=== PATIENT | female | born 1945 | race African-American/Black ===

== ENCOUNTER 2020-05-12 10:33 | Inpatient (IN) | payer MEDICARE, OTHER ==
[~2020-05-12] VITALS: Ht 162.6 cm; Wt 51.8 kg
[2020-05-12 11:44] LABS: BASOPHIL 0.3 % (0-2); EOSINOPHIL 0.3 % (0-7); HCT 43.2 % (37.0-47.0); HGB 12.2 g/dl (12.5-16.0); LYMPHOCYTE 10.6 % (15-48); MCH 31.3 pg (25.0-31.0); MCHC 28.2 g/dL (32.0-36.0); MCV 110.8 fL (78.0-100.0); MONOCYTE 4.7 % (0-12); MPV 11.6 fL (6.0-9.5); NEUTROPHIL 83.9 % (41-80); NRBC 0; PLT 225 K/uL (150-400); RDW 12.7 % (11.5-14.0); WBC 5.8 K/uL (4.0-10.5)
[2020-05-12 11:51] LABS: ALBUMIN 2.6 g/dL (3.4-5.0); ALKALINE PHOSHATASE 98 U/L (46-116); ALT 17 U/L (14-59); AST 23 U/L (15-37); BILIRUBIN - TOTAL 0.3 mg/dL (0.2-1.0); BUN 17 mg/dL (7-18); BUN/CREAT RATIO (CALC) 51.5 RATIO; CHLORIDE 100 mmol/L (98-107); CREATININE 0.33 mg/dL (0.51-0.95); GLOBULIN (CALCULATION) 4.1 g/dL; GLUCOSE 217 mg/dL (74-106); POTASSIUM 4.1 mmol/L (3.5-5.1); TOTAL PROTEIN 6.7 g/dL (6.4-8.2)
[2020-05-12 11:53] LABS: PRO-BNP 504 pg/mL (<450)
[2020-05-12 11:57] LABS: CO2 (BICARBONATE) > 45 mmol/L (21-32)
[2020-05-12 12:16] LABS: CORONAVIRUS 2019 SARS-COV-2 NEGATIVE (NEGATIVE); INFLUENZA A NAA NEGATIVE (NEGATIVE)
[2020-05-12] MEDS ORDERED: HYDRALAZINE25 MG PO (22:06)
[2020-05-12] MEDS ORDERED: ADALAT CC60 MG PO (22:07)
[2020-05-12] MEDS ORDERED: CHOLESTYRAMINE378 GM PO (22:08)
[2020-05-12] MEDS ORDERED: FLOVENT DISKU100 MCG PO (22:08)
[2020-05-12] MEDS ORDERED: SPIRIVA RESPIMAT4 G1 INH (22:10)
[2020-05-12] MEDS ORDERED: PROAIR DIGIHAL90 MCG INH (22:11)
[2020-05-12] MEDS ORDERED: ASPIRIN EC81 M1 PO (22:12)
[2020-05-12] MEDS ORDERED: LUMIGAN5 ML EYEBOTH (22:14)
--- NOTE | 2020-05-13 02:03 | NUR ---
RT TRIED TO PLACE BIPAP ON PT, PT BECAME ADGITATED AND COMBATIVE, TRYING TO CLIMB OUT OF BED AND WOULD NOT PUT BIPAP ON, DAUGHTER AT BEDSIDE, HOOP MAKER HELPER MACHINE NOTIFIED, PT AGREED TO FINALLY WEAR NASAL CANNULA, WILL CONTINUE TO MONITOR
[2020-05-13 05:33] LABS: HCT 40.3 % (37.0-47.0); HGB 11.4 g/dl (12.5-16.0); MCH 30.7 pg (25.0-31.0); MCHC 28.3 g/dL (32.0-36.0); MCV 108.6 fL (78.0-100.0); MPV 10.4 fL (6.0-9.5); RBC 3.71 M/uL (4.20-5.40); RDW 12.5 % (11.5-14.0)
[2020-05-13 05:55] LABS: BUN 16 mg/dL (7-18); BUN/CREAT RATIO (CALC) 37.2 RATIO; CHLORIDE 102 mmol/L (98-107); CO2 (BICARBONATE) >45 mmol/L (21-32); CREATININE 0.43 mg/dL (0.51-0.95); GLUCOSE 108 mg/dL (74-106); POTASSIUM 4.5 mmol/L (3.5-5.1)
--- NOTE | 2020-05-13 11:19 | NUR ---
PT REPORTS SHE LIVES WITH HER DTR BRIAN WHO HELPS WITH HER ADL'S . HANK IS ALSO A DTR AND WILL COME PICK HER UP AT TIME OF DISCHARGE. PT REPORTS SHE HAS HOME O2, WALKER AND CANE SHE WOULD LIKE TO HAVE HOME HEALTH AT DISCHARGE FOR NURSING PT/OT. I DID EXPAIN CHOICE LETTER AFFILIATIONS EXPLAINED AND WAS SIGN PER PT REQUEST BY DTR FLORESITA. DR ABRAHAM NOTIFIED OF PT CHOICE AND FELT THIS WOULD BENIFIT HER WELL.
--- NOTE | 2020-05-13 11:22 | NUR ---
[facility] NOTIFIED ON [facility] PLEASE CALL [phone] AT DISCHARGE TO NOTIFY [facility].
--- NOTE | 2020-05-13 14:10 | NUR ---
REFERRAL FOR [facility] FOR NURSING ASSESSMENT AND PT/OT. PT. TO D/C HOME ON 05/14/20.
[2020-05-14 03:49] LABS: HCT 39.3 % (37.0-47.0); HGB 11.5 g/dl (12.5-16.0); MCH 30.7 pg (25.0-31.0); MCHC 29.3 g/dL (32.0-36.0); MCV 105.1 fL (78.0-100.0); MPV 10.8 fL (6.0-9.5); RBC 3.74 M/uL (4.20-5.40); RDW 12.7 % (11.5-14.0); WBC 5.8 K/uL (4.0-10.5)
[2020-05-14 04:08] LABS: BUN/CREAT RATIO (CALC) 46.7 RATIO; CREATININE 0.3 mg/dL (0.51-0.95); POTASSIUM 4.6 mmol/L (3.5-5.1)
[2020-05-14] MEDS ORDERED: ZPAK PO (08:03)
[2020-05-14] MEDS ORDERED: MEDROL 4MG DOSEP4 MG PO (08:03)
--- NOTE | 2020-05-14 12:09 | NUR ---
PT DISCHARGED AT 1114 VIA WHEELCHAIR TO ER DOOR WHERE OTHER FAMILY MEMBER WAS WAITING. FAMILY MEMBER AT BEDSIDE ASSISTED PT WITH DRESSING. HOME OXYGEN BROUGHT INTO PT TO LEAVE WITH. FAMILY MEMBER STATED PT WAS AT HER BASLINE. PT ON 2L O2 NC WHEN LEAVING. PT TELE REMOVED, IV DC'D AND PULSE OX REMOVED. PT DISCHARGE INSTRUCTIONS GIVEN TO PT AND FAMILY MEMBER. BOTH EDUCATED ON NEW MEDICATIONS PRESCRIBED AND PAPER SCRIPTS GIVEN TO FAMILY MEMBER. FAMILY MEMBER STATED THAT THE PHARMACY THEY USE IS CLOSED AND WOULD NOT BE OPEN UNTIL TOMORROW. RN SUGGESTED TO START MEDICATION LOR. PT ALSO GIVEN EDUCATION ON SIDE EFFECTS, AND HOW TO USE NEW MEDS. RN EDUCATED PT ON SIGNS AND SYMPTOMS TO REPORT TO PCP OR COME TO THE ER WITH SOA, CHEST PAIN, DIZZINESS SYNCOPE, INCREASED CONFUSION. PT AND FAMILY STATED THEY UNDERSTOOD. PACKETS GIVEN ON HOW TO MANAGE RESP DISTRESS AND PNUEMONIA. TAKE MEDICATION DIRECTED. PT SEEMS TO BE IN NO PAIN OR DISTRESS AT THIS TIME. ASSISTED PT INTO BACK OF VAN AND BUCKLED SEAT BELT.
== END 2020-05-14 11:15 | disposition home health service (06) | DRG 193 ==
LOC: FER 10:33 → FTCU 12:06
PROVIDERS: Emergency Medicine; ADMIT Hospitalist
PROC: 5A09457 Assistance with Respiratory Ventilation, 24-96 Consecutive Hours, Continuous Positive Airway Pressure (ICD-10-PCS; principal; 2020-05-12)
DX: J18.9 Pneumonia, unspecified organism (principal); J96.21 Acute and chronic respiratory failure with hypoxia; J96.22 Acute and chronic respiratory failure with hypercapnia; J44.1 Chronic obstructive pulmonary disease with (acute) exacerbation; J44.0 Chronic obstructive pulmonary disease with (acute) lower respiratory infection; E87.2 Acidosis; Z20.822 Contact with and (suspected) exposure to COVID-19; I10 Essential (primary) hypertension; Z99.81 Dependence on supplemental oxygen; Z87.891 Personal history of nicotine dependence
CPT/HCPCS: 36415; 36600; 71045; 80048; 80053; 82803; 82962; 83605; 83880; 84145; 84484; 85025; 87040; 93005; 94010; 94640; 97116; 97162; 97166; 97530-GP; 97535; J0456; J0696; J1650; J2930; J7030; J7050; U0002

== ENCOUNTER 2020-10-12 17:04 | Day surgery (SDCO) | payer MEDICARE, OTHER ==
[~2020-10-12] VITALS: Ht 162.6 cm; Wt 50.9 kg
[~2020-10-12 17:04] MED LIST: ADALAT CC60 MG PO; ASPIRIN EC81 M1 PO; CHOLESTYRAMINE378 GM PO; FLOVENT DISKU100 MCG PO; HYDRALAZINE25 MG PO; LUMIGAN5 ML EYEBOTH; MEDROL 4MG DOSEP4 MG PO; PROAIR DIGIHAL90 MCG INH; SPIRIVA RESPIMAT4 G1 INH; ZPAK PO
[2020-10-12 19:21] LABS: BASOPHIL 0.3 % (0-2); EOSINOPHIL 0.8 % (0-7); HCT 37.3 % (37.0-47.0); HGB 10.8 g/dl (12.5-16.0); LYMPHOCYTE 17.2 % (15-48); MCH 32.1 pg (25.0-31.0); MONOCYTE 7.5 % (0-12); MPV 10.5 fL (6.0-9.5); NRBC 0; PLT 238 K/uL (150-400); RBC 3.36 M/uL (4.20-5.40); RDW 14.1 % (11.5-14.0); WBC 6.4 K/uL (4.0-10.5)
[2020-10-12 19:39] LABS: ALKALINE PHOSHATASE 89 U/L (46-116); ALT 15 U/L (14-59); AMYLASE 77 U/L (25-115); AST 20 U/L (15-37); BILIRUBIN - TOTAL 0.3 mg/dL (0.2-1.0); BUN 19 mg/dL (7-18); CHLORIDE 99 mmol/L (98-107); CO2 (BICARBONATE) >45 mmol/L (21-32); GLOBULIN (CALCULATION) 3.6 g/dL; GLUCOSE 100 mg/dL (74-106); LIPASE 106 U/L (73-393); POTASSIUM 4.2 mmol/L (3.5-5.1); TOTAL PROTEIN 6.6 g/dL (6.4-8.2)
[2020-10-12 21:59] LABS: BILIRUBIN NEGATIVE (NEGATIVE); BLOOD 3+ Ery/uL (NEGATIVE); CLARITY CLEAR (CLEAR); COLOR YELLOW (YELLOW); GLUCOSE (U) NORMAL (NORMAL); LEUKOCYTES NEGATIVE Leu/uL (NEGATIVE); NITRITE NEGATIVE (NEGATIVE); PROTEIN NEGATIVE (NEGATIVE); UROBILINOGEN 0.2 mg/dL (0.2-1.0); pH 7.5 (5.0-9.0)
[2020-10-12 22:09] LABS: URINARY RBC RARE; URINARY WBC RARE
[2020-10-13 05:42] LABS: BASOPHIL 0.3 % (0-2); EOSINOPHIL 1.6 % (0-7); HCT 34.1 % (37.0-47.0); HGB 9.8 g/dl (12.5-16.0); LYMPHOCYTE 18.4 % (15-48); MCH 31.6 pg (25.0-31.0); MCHC 28.7 g/dL (32.0-36.0); MONOCYTE 8.5 % (0-12); MPV 10.1 fL (6.0-9.5); NRBC 0; PLT 199 K/uL (150-400); RDW 14.2 % (11.5-14.0); WBC 6.4 K/uL (4.0-10.5)
[2020-10-13 06:08] LABS: ALBUMIN 2.5 g/dL (3.4-5.0); BILIRUBIN - TOTAL 0.3 mg/dL (0.2-1.0); BUN/CREAT RATIO (CALC) 37.2 RATIO; CREATININE 0.43 mg/dL (0.51-0.95); GLOBULIN (CALCULATION) 3.2 g/dL; POTASSIUM 4.1 mmol/L (3.5-5.1); TOTAL PROTEIN 5.7 g/dL (6.4-8.2)
--- NOTE | 2020-10-13 22:55 | NUR ---
PT TRANSFERRED FROM TCU TO MED SURG UNIT VIA BED TRANSFER , STABLE UPON ARRIVAL. PT ALERT AND ORIENTED NO S/S OR C/O PAIN NOTED PT INSTRUCTED ON USE OF CALL LIGHT AND WITHIN REACH. DAUGHTER AT BEDSIDE.
[2020-10-14] MEDS ORDERED: PROTONIX 40MG T40 MG PO (09:16)
--- NOTE | 2020-10-14 12:03 | NUR ---
DISCUSSED DISCHARGE INSTRUCTIONS WITH PATIENT AND DAUGHTERS. INFORMED OF FOLLOW UP APPOINTMENTS AND SCRIPTS. D/C HOME IN STABLE CONDITION. IV REMOVED, PRESSURE APPLIED TO AREA. SWITCHED TO HOME O2 TANK.
== END 2020-10-14 12:15 | disposition home or self-care (01) ==
LOC: FER 17:04 → FTCU 21:38 → FMS 10-13 22:20
PROVIDERS: Emergency Medicine; Nurse Practitioner; ADMIT Internal Medicine
DX: K29.51 Unspecified chronic gastritis with bleeding (principal); K25.4 Chronic or unspecified gastric ulcer with hemorrhage; K44.9 Diaphragmatic hernia without obstruction or gangrene; K57.31 Diverticulosis of large intestine without perforation or abscess with bleeding; I10 Essential (primary) hypertension; K42.9 Umbilical hernia without obstruction or gangrene; K40.20 Bilateral inguinal hernia, without obstruction or gangrene, not specified as recurrent; D25.9 Leiomyoma of uterus, unspecified; N28.1 Cyst of kidney, acquired; N20.0 Calculus of kidney; J44.9 Chronic obstructive pulmonary disease, unspecified; E78.00 Pure hypercholesterolemia, unspecified; J96.11 Chronic respiratory failure with hypoxia; J96.12 Chronic respiratory failure with hypercapnia; Z87.891 Personal history of nicotine dependence; Z79.82 Long term (current) use of aspirin; Z79.899 Other long term (current) drug therapy; Z99.81 Dependence on supplemental oxygen; Z20.822 Contact with and (suspected) exposure to COVID-19
CPT/HCPCS: 36415; 80053; 81001; 82150; 83690; 85025; 88305; 88342; 94640; 94760; C9113; G0378; J7030; J7120; Q9967; U0002

== ENCOUNTER 2021-01-29 12:48 | Emergency (ER) | payer MEDICARE, OTHER ==
[~2021-01-29 12:48] MED LIST changes: +PROTONIX 40MG T40 MG PO
[2021-01-29 14:34] LABS: BASOPHIL 0.7 % (0-2); EOSINOPHIL 1.2 % (0-7); HCT 39.2 % (37.0-47.0); HGB 11.2 g/dl (12.5-16.0); LYMPHOCYTE 14.3 % (15-48); MCHC 28.6 g/dL (32.0-36.0); MPV 10.7 fL (6.0-9.5); NEUTROPHIL 76.6 % (41-80); NRBC 0; PLT 209 K/uL (150-400); RDW 13.7 % (11.5-14.0); WBC 4.3 K/uL (4.0-10.5)
[2021-01-29 14:48] LABS: INR 1.01 (0.9-1.2); PROTHROMBIN TIME 12.7 SECONDS (11.8-13.4)
[2021-01-29 14:57] LABS: ALBUMIN 2.8 g/dL (3.4-5.0); BILIRUBIN - TOTAL 0.2 mg/dL (0.2-1.0); BUN/CREAT RATIO (CALC) 31.4 RATIO; CREATININE 0.35 mg/dL (0.51-0.95); GLOBULIN (CALCULATION) 3.6 g/dL; POTASSIUM 4.3 mmol/L (3.5-5.1); TOTAL PROTEIN 6.4 g/dL (6.4-8.2)
[2021-01-29] MEDS ORDERED: BACTRIM DS TAB1 EACH PO (15:19)
== END 2021-01-29 15:46 | disposition home or self-care (01) ==
LOC: FER 12:48
PROVIDERS: Internal Medicine
DX: S01.112A Laceration without foreign body of left eyelid and periocular area, initial encounter (principal); I10 Essential (primary) hypertension; Z23 Encounter for immunization; W01.0XXA Fall on same level from slipping, tripping and stumbling without subsequent striking against object, initial encounter; Y92.009 Unspecified place in unspecified non-institutional (private) residence as the place of occurrence of the external cause
CPT/HCPCS: 36415; 70450; 70486; 80053; 85025; 85610; 85730; 90471; 90715

== ENCOUNTER 2021-11-03 08:55 | Emergency (ER) | payer MEDICARE, OTHER ==
[~2021-11-03 08:55] MED LIST changes: +BACTRIM DS TAB1 EACH PO
[2021-11-03 10:09] LABS: BASOPHIL 0.7 % (0-2); EOSINOPHIL 0.4 % (0-7); HCT 35.8 % (37.0-47.0); HGB 10.5 g/dl (12.5-16.0); LYMPHOCYTE 18.3 % (15-48); MCH 31.1 pg (25.0-31.0); MCHC 29.3 g/dL (32.0-36.0); MCV 105.9 fL (78.0-100.0); MONOCYTE 7.7 % (0-12); MPV 11.6 fL (6.0-9.5); NEUTROPHIL 72.2 % (41-80); NRBC 0; PLT 165 K/uL (150-400); RBC 3.38 M/uL (4.20-5.40); RDW 11.9 % (11.5-14.0); WBC 2.8 K/uL (4.0-10.5)
[2021-11-03 10:19] LABS: INR 0.99 (0.9-1.2); PROTHROMBIN TIME 12.8 SECONDS (11.9-13.9); PTT 28.2 SECONDS (24.9-34.6)
[2021-11-03 10:33] LABS: ALBUMIN 2.8 g/dL (3.4-5.0); ALKALINE PHOSHATASE 76 U/L (46-116); ALT 18 U/L (14-59); AST 22 U/L (15-37); BILIRUBIN - TOTAL 0.3 mg/dL (0.2-1.0); BUN 18 mg/dL (7-18); BUN/CREAT RATIO (CALC) 42.9 RATIO; CHLORIDE 96 mmol/L (98-107); CREATININE 0.42 mg/dL (0.51-0.95); GLOBULIN (CALCULATION) 2.6 g/dL; GLUCOSE 86 mg/dL (74-106); POTASSIUM 3.6 mmol/L (3.5-5.1); TOTAL PROTEIN 5.4 g/dL (6.4-8.2)
[2021-11-03 10:34] LABS: CO2 (BICARBONATE) > 45 mmol/L (21-32)
[2021-11-03 10:44] LABS: CORONAVIRUS 2019 SARS-COV-2 NEGATIVE (NEGATIVE); INFLUENZA A NAA NEGATIVE (NEGATIVE)
[2021-11-03 10:47] LABS: BILIRUBIN NEGATIVE (NEGATIVE); BLOOD NEGATIVE Ery/uL (NEGATIVE); CLARITY CLEAR (CLEAR); COLOR YELLOW (YELLOW); GLUCOSE (U) NORMAL (NORMAL); LEUKOCYTES NEGATIVE Leu/uL (NEGATIVE); NITRITE NEGATIVE (NEGATIVE); PROTEIN TRACE (LOW) mg/dL (NEGATIVE); SPECIFIC GRAVITY 1.025 (1.001-1.030); UROBILINOGEN 0.2 mg/dL (0.2-1.0)
== END 2021-11-03 11:52 | disposition critical access hospital (66) ==
LOC: FER 08:55
PROVIDERS: Emergency Medicine
DX: S06.5X0A Traumatic subdural hemorrhage without loss of consciousness, initial encounter (principal); S01.80XA Unspecified open wound of other part of head, initial encounter; I10 Essential (primary) hypertension; J44.9 Chronic obstructive pulmonary disease, unspecified; Z20.822 Contact with and (suspected) exposure to COVID-19; Z86.73 Personal history of transient ischemic attack (TIA), and cerebral infarction without residual deficits; Z87.891 Personal history of nicotine dependence; W06.XXXA Fall from bed, initial encounter; Y92.009 Unspecified place in unspecified non-institutional (private) residence as the place of occurrence of the external cause
CPT/HCPCS: 36415; 70450; 71045; 72125; 73522; 80053; 81001; 84484; 85025; 85610; 85730; 93005; Q0162; U0002